=== PATIENT | male | born 1975 | race African-American/Black ===

== ENCOUNTER 2018-05-20 17:33 | Emergency (ER) | payer OTHER ==
[2018-05-20] MEDS ORDERED: LORAZEPAM INJ 2 MG/1 ML VIAL IM ONE (18:03)
--- NOTE | 2018-05-20 18:04 | ER Document Report ---
ED Medical Screen (RME) - General Chief Complaint: Shortness Of Breath Stated Complaint: SHORTNESS OF BREATH Time Seen by Provider: 05/20/18 18:00 Notes: 42 years old male with a history of anxiety depression hypertension presents today with elevated blood pressure and feeling of anxiety. With shaking of limbs. He cannot recall why it happened and what triggered it. He is having tremors. - Related Data Allergies/Adverse Reactions: iodine [Iodine] Allergy (Severe, Verified 05/20/18 17:38) scopolamine [Scopolamine] Allergy (Intermediate, Verified 05/20/18 17:38) Past Medical History - Past Medical History Cardiac Medical History: Reports: Hx Hypertension Past Surgical History: Reports: Hx Adenoidectomy Physical Exam - Vital signs Vitals: Temp Pulse Resp BP Pulse Ox 98.3 F 72 24 H 187/104 H 100 05/20/18 17:52 05/20/18 17:52 05/20/18 17:52 05/20/18 17:52 05/20/18 17:52 Course - Vital Signs Vital signs: Temp Pulse Resp BP Pulse Ox 98.3 F 72 24 H 187/104 H 100 05/20/18 17:52 05/20/18 17:52 05/20/18 17:52 05/20/18 17:52 05/20/18 17:52 Doctor's Discharge - Discharge Referrals: KENIA,NO [Primary Care Provider] - Follow up as needed
[2018-05-20 19:00] LABS: ABSOLUTE BASOPHILS # (AUTO) 0.1 10^3/uL (0.0-0.2); ABSOLUTE EOSINOPHILS # (AUTO) 0.2 10^3/uL (0.0-0.6); ABSOLUTE LYMPHOCYTES (AUTO) 2.4 10^3/uL (0.5-4.7); ABSOLUTE MONOCYTES (AUTO) 0.6 10^3/uL (0.1-1.4); ABSOLUTE NEUT (AUTO) 2.3 10^3/uL (1.7-8.2); EOSINOPHILS % (AUTO) 3.1 % (0-6); HEMATOCRIT 52.2 % (37.9-51.0); HEMOGLOBIN 17.6 g/dL (13.5-17.0); LYMPHOCYTES % (AUTO) 43.5 % (13-45); MEAN CORPUSCULAR HEMOGLOBIN 27.6 pg (27.0-33.4); MEAN CORPUSCULAR HGB CONC 33.7 g/dL (32.0-36.0); MEAN CORPUSCULAR VOLUME 82 fl (80-97); MONOCYTES % (AUTO) 10.2 % (3-13); PLATELET COUNT 175 10^3/uL (150-450); RED BLOOD COUNT 6.35 10^6/uL (4.35-5.55); RED CELL DISTRIBUTION WIDTH 14.6 % (11.5-14.0); SEGMENTED NEUTROPHILS % (AUTO) 42.2 % (42-78); TOTAL CELLS COUNTED % (AUTO) 100 %; WHITE BLOOD COUNT 5.5 10^3/uL (4.0-10.5)
[2018-05-20 19:20] LABS: ALANINE AMINOTRANSFERASE 17 U/L (21-72); ALBUMIN 4.8 g/dL (3.5-5.0); ALKALINE PHOSPHATASE 51 U/L (38-126); ANION GAP 9 (5-19); ASPARTATE AMINO TRANSFERASE 19 U/L (17-59); BILIRUBIN,DIRECT 0.2 mg/dL (0.0-0.4); BILIRUBIN,TOTAL 0.5 mg/dL (0.2-1.3); BLOOD UREA NITROGEN 26 mg/dL (7-20); CARBON DIOXIDE 25 mmol/L (22-30); CHLORIDE 108 mmol/L (98-107); GLUCOSE 102 mg/dL (75-110); POTASSIUM 3.9 mmol/L (3.6-5.0); SODIUM 141.6 mmol/L (137-145); TOTAL PROTEIN 7.3 g/dL (6.3-8.2)
--- NOTE | 2018-05-20 19:28 | ER Document Report ---
ED General - General Chief Complaint: Shortness Of Breath Stated Complaint: SHORTNESS OF BREATH Time Seen by Provider: 05/20/18 18:00 Notes: Patient is a 42-year-old male that comes to the emergency department for chief complaint of "panic attack". He states that he started feeling like his head was throbbing, he felt short of breath, he felt very shaky. He states that this occurred just prior to arrival, he states that usually he can breathe through it, relax, and it resolves but this time it would not. He states that after he got here he started feeling much better, then he was medicated, now he feels fine. He denies any current shortness of breath. He denies ever feeling chest pain, dizziness, focal numbness or weakness. He denies headache. He states that he usually gets a panic attack around once a week. He is medicated for this with the citalopram and venlafaxine, neither are new. He admits he is stressed out on his job. He has a past medical history of hypertension, treated. He admits to smoking, caffeine use, and he has had a lot of trouble sleeping recently. He has been worked up for this including sleep studies. Friends are at bedside. - Related Data Allergies/Adverse Reactions: iodine [Iodine] Allergy (Severe, Verified 05/20/18 17:38) scopolamine [Scopolamine] Allergy (Intermediate, Verified 05/20/18 17:38) Past Medical History - General Information source: Patient - Social History Smoking Status: Current Every Day Smoker Smoking Education Provided: Yes - <3 min Drug Abuse: None Lives with: Family Family History: Reviewed & Not Pertinent Patient has suicidal ideation: No Patient has homicidal ideation: No - Past Medical History Cardiac Medical History: Reports: Hx Hypercholesterolemia, Hx Hypertension Renal/ Medical History: Denies: Hx Peritoneal Dialysis Psychiatric Medical History: Reports: Hx Depression Past Surgical History: Reports: Hx Adenoidectomy, Hx Appendectomy, Hx Orthopedic Surgery - Immunizations Immunizations up to date: Yes Hx Diphtheria, Pertussis, Tetanus Vaccination: Yes Review of Systems - Review of Systems Constitutional: No symptoms reported EENT: No symptoms reported Cardiovascular: No symptoms reported Respiratory: See HPI Gastrointestinal: No symptoms reported Genitourinary: No symptoms reported Male Genitourinary: No symptoms reported Musculoskeletal: No symptoms reported Skin: No symptoms reported Hematologic/Lymphatic: No symptoms reported Neurological/Psychological: See HPI Physical Exam - Vital signs Vitals: Temp Pulse Resp BP Pulse Ox 98.3 F 72 24 H 187/104 H 100 05/20/18 17:52 05/20/18 17:52 05/20/18 17:52 05/20/18 17:52 05/20/18 17:52 - Notes Notes: GENERAL: Alert, interacts well. No acute distress. HEAD: Normocephalic, atraumatic. EYES: Pupils equal, round, and reactive to light. Extraocular movements intact. ENT: Oral mucosa moist, tongue midline. Oropharynx unremarkable. Airway patent. Nares patent, no nasal septal hematoma, TM's intact. NECK: Full range of motion. Supple. Trachea midline. LUNGS: Clear to auscultation bilaterally, no wheezes, rales, or rhonchi. No respiratory distress. HEART: Regular rate and rhythm. No murmur ABDOMEN: Soft, non-tender. Non-distended. Bowel sounds present in all 4 q uadrants. GENITOURINARY: Deferred EXTREMITIES: Moves all 4 extremities spontaneously. No edema, normal radial and dorsalis pedis pulses bilaterally. No cyanosis. BACK: no cervical, thoracic, lumbar midline tenderness. No saddle anesthesia, normal distal neurovascular exam. NEUROLOGICAL: Alert and oriented x3. Normal speech. [cranial nerves II through XII grossly intact]. PSYCH: Normal affect, normal mood. Calm and cooperative. SKIN: Warm, dry, normal turgor. No rashes or lesions noted. Course - Re-evaluation Re-evalutation: On my evaluation patient is calm and well-appearing. He states all his symptoms from earlier have completely resolved. He has already been treated with Ativan. Reviewed workup from triage including CBC, chemistry, this shows elevated hemoglobin but is otherwise unremarkable. Patient is a smoker. Patient is hypertensive. Patient with normal neurologic exam on evaluation. Asymptomatic hypertension. No chest pain or headache. Patient was just given the Ativan therefore he will be reevaluated. On reevaluation patient had been asking for something for nausea/headache which was developing, he is medicated for this with Reglan, after I reevaluated he was asleep, easily aroused. Patient denies a headache to me. Nurse had asked me for medication for headache. Neurologic exam is still normal. He denies any headache. He states he has been having trouble sleeping, he has been stressed out at work, he is having frequent panic attacks, his trazodone is not working which she was just started on. He is requesting to leave, requesting something to take if he has a bad anxiety attack like today that he can take first before coming in. He states usually his panic attacks are manageable without medication. He is also asking for something for sleep. After lengthy discussion with patient denying any concerning reported things like SI or HI, headache, chest pain, patient will be discharged with a small amount of Ativan to take only as needed, Vistaril to try to use for sleep, work release, and he is instructed to do close primary care follow-up for adjustment of his blood pressure medications and psychiatric medications. He is hypertensive at discharge but a symptomatic still. Discussed follow-up and return precautions. Patient states understanding and agreement. - Vital Signs Vital signs: Temp Pulse Resp BP Pulse Ox 97.8 F 60 19 172/103 H 100 05/20/18 20:55 05/20/18 20:55 05/20/18 20:55 05/20/18 20:55 05/20/18 20:55 - Laboratory Result Diagrams: 05/20/18 18:50 05/20/18 18:50 Laboratory results interpreted by me: 05/20/18 05/20/18 18:50 18:50 RBC 6.35 H Hgb 17.6 H Hct 52.2 H RDW 14.6 H Chloride 108 H BUN 26 H ALT 17 L Discharge - Discharge Clinical Impression: Anxiety, Poor sleep, Panic attack Hypertension Qualifiers: Hypertension type: unspecified Qualified Code(s): I10 - Essential (primary) hypertension Condition: Stable Disposition: HOME, SELF-CARE Additional Instructions: Your evaluation is reassuring at this time. Take Ativan as prescribed only if needed for panic attack. Continue your current medications including blood pressure medications. Reduce caffeine, stop smoking. Have your blood pressure rechecked in close follow-up for additional management of this. Most likely a lot of your symptoms will improve if your sleeping improves. Follow-up with primary care for adjustment of medications, you can try the Vistaril prescribed if needed in the meantime. Return if you worsen including severe headache, chest pain, passing out, vomiting, difficulty breathing, or any other concerning or worsening symptoms. Prescriptions: Hydroxyzine Pamoate [Vistaril 25 mg Capsule] 1 - 2 cap PO Q6 PRN #30 capsule PRN Reason: Lorazepam [Ativan 1 mg Tablet] 1 mg PO Q4 PRN #10 tab PRN Reason: Forms: Elevated Blood Pressure, Return to Work Referrals: LOCALMD,NO [NO LOCAL MD] - Follow up as needed
[2018-05-20] MEDS ORDERED: METOCLOPRAMIDE HCL INJ/PF 10 MG/2 ML SDV IV ONE (20:47)
[2018-05-20 20:56] VITALS: BP 172/103
--- NOTE | 2018-05-21 07:52 | EKG REPORT ---
SEVERITY:- BORDERLINE ECG - SINUS RHYTHM BORDERLINE T ABNORMALITIES, INFERIOR LEADS : Confirmed by: Larry Reyes MD 21-May-2018 07:51:21
== END 2018-05-20 22:00 | disposition home or self-care (01) ==
LOC: ER 17:33
DX: F41.8 Other specified anxiety disorders (principal); I10 Essential (primary) hypertension; R06.02 Shortness of breath; F17.200 Nicotine dependence, unspecified, uncomplicated; E78.00 Pure hypercholesterolemia, unspecified
CPT/HCPCS: 93005; 99285; 96372; 96374; 36415; 85025; 80053; 93010; J2765; J2060

== ENCOUNTER 2018-06-22 23:33 | Emergency (ER) | payer OTHER ==
[2018-06-23] MEDS ORDERED: DIPHENHYDRAMINE HCL 50 MG/ML VIAL IV ONE (01:15)
[2018-06-23] MEDS ORDERED: METHYLPREDNISOLONE INJ 125 MG/2 ML SDV IV ONE (01:16)
[2018-06-23] MEDS ORDERED: FAMOTIDINE INJ/PF 20 MG/2 ML SDV IV ONE (01:16)
--- NOTE | 2018-06-23 01:25 | ER Document Report ---
ED General - General Chief Complaint: Headache Stated Complaint: PAIN IN HEAD Time Seen by Provider: 06/23/18 01:05 [facility] - Follow up as needed Information source: [facility] Records, Outside Facility Records Notes: 42-year-old male with hypertension, hyperlipidemia, migraine headaches presents with complaint of left-sided headache that started 4 hours prior to arrival. Headache is located behind the left eye described as a throbbing pain. Patient reports that he has been suffering from this headache intermittently for several months. He had a recent MRI performed less than 1 month ago at [facility] which showed no evidence of stroke but mild nonspecific hyperintense changes within the cerebral white matter which can be seen with trauma inflammation or demyelinating disease. Patient states that he has an upcoming appointment with Dr. Nguyen neurologist on for between the 2018. Patient denies any nausea, photophobia, fever, trauma to the head. He states that they have not provided him with any migraine medications until he is evaluated by neurology. TRAVEL OUTSIDE OF THE [place] IN LAST 30 DAYS: No - HPI Onset: Other Onset/Duration: Intermittent Quality of pain: Throbbing Severity: Moderate Associated symptoms: Headache. denies: Chest pain, Diarrhea, Nausea, Vomiting, Shortness of breath, Weakness Exacerbated by: Denies Relieved by: Denies Similar symptoms previously: Yes Recently seen / treated by doctor: Yes - Related Data Allergies/Adverse Reactions: iodine [Iodine] Allergy (Severe, Verified 06/23/18 01:25) scopolamine [Scopolamine] Allergy (Intermediate, Verified 06/23/18 01:25) Past Medical History - General Information source: Patient, [facility] Records - Social History Smoking Status: Current Every Day Smoker Cigarette use (# per day): Yes - 3 Smoking Education Provided: Yes - Smoking cessation counseling was provided for 4 minutes at the bedside Frequency of alcohol use: Occasional Drug Abuse: None Lives with: Family Family History: Reviewed & Not Pertinent - Past Medical History Cardiac Medical History: Reports: Hx Hypercholesterolemia, Hx Hypertension Renal/ Medical History: Denies: Hx Peritoneal Dialysis Psychiatric Medical History: Reports: Hx Depression Past Surgical History: Reports: Hx Adenoidectomy, Hx Appendectomy, Hx Orthopedic Surgery - Immunizations Immunizations up to date: Yes Hx Diphtheria, Pertussis, Tetanus Vaccination: Yes Review of Systems - Review of Systems Notes: REVIEW OF SYSTEMS: CONSTITUTIONAL : Denies fever, chills, or sweats. Denies recent illness. Denies weight loss, recent hospitalizations. EENT: Denies sore throat, oral lesions, difficulty swallowing. CARDIOVASCULAR: Denies chest pain. Denies palpitations. Denies lower extremity edema. RESPIRATORY: Denies cough. Denies shortness of breath, wheezing. GASTROINTESTINAL: Denies abdominal pain or distention. Denies nausea, vomiting, or diarrhea. Denies blood in vomitus, stools, or per rectum. Denies black, tarry stools. Denies constipation. GENITOURINARY: Denies difficulty urinating, painful urination, frequency, blood in urine, testicular pain or penile discharge. MUSCULOSKELETAL: Denies back or neck pain or stiffness. Denies joint pain or swelling. SKIN: Denies rash, lesions or sores. HEMATOLOGIC : Denies easy bruising or bleeding. LYMPHATIC: Denies swollen glands. NEUROLOGICAL: Denies confusion or altered mental status. Denies loss of consciousness. Denies dizziness or lightheadedness. Denies weakness or paralysis. Denies problems difficulty with ambulation, slurred speech. Denies sensory loss, numbness, or tingling. Denies seizures. PSYCHIATRIC: Denies anxiety or stress. Denies depression, suicidal ideation, or Physical Exam - Vital signs Vitals: Temp Pulse BP Pulse Ox 98.7 F 65 167/108 H 95 06/22/18 23:42 06/22/18 23:42 06/22/18 23:42 06/22/18 23:42 - Notes Notes: PHYSICAL EXAMINATION: GENERAL: Well-appearing, well-nourished and in no acute distress. HEAD: Atraumatic, normocephalic. EYES: Pupils equal round and reactive to light, extraocular movements intact, sclera anicteric, conjunctiva are normal. No temporal artery tenderness ENT: Nares patent, oropharynx clear without exudates. Moist mucous membranes. NECK: Normal range of motion, supple without lymphadenopathy LUNGS: Breath sounds clear to auscultation bilaterally and equal. No wheezes rales or rhonchi. HEART: Regular rate and rhythm without murmurs ABDOMEN: Soft, nontender, nondistended abdomen. No guarding, no rebound. No masses appreciated. Musculoskeletal: Normal range of motion, no pitting or edema. No cyanosis. Neuro: Mental status; alert and oriented x3. Cranial nerves II through XII intact. Sensation intact to sharp/dull differentiation in all extremities. Motor; normal tone. No abnormal movements appreciated. No pronator drift. Strength tested and 5/5 in bilateral wrist flexion/extension, elbow flexion/extension, shoulder abduction, straight leg raise, knee flexion/extension, ankle dorsiflexion/plantar flexion. Patient ambulates with a steady gait. Coordination; no ataxia. Finger to nose and heel to ho testing intact bilaterally. Reflexes; brachial radialis, biceps, and patellar reflexes within normal limits and symmetric bilaterally. Babinski with downgoing toes b ilaterally. PSYCH: Normal mood, normal affect. SKIN: Warm, Dry, normal turgor, no rashes or lesions noted. Course - Re-evaluation Re-evalutation: Head CT 06/23/18 01:05 IMPRESSION: No acute intracranial findings. Head CTA 06/23/18 01:05 IMPRESSION: Unremarkable CT angiogram. No evidence of aneurysm, stenosis or vessel occlusion. Neck CTA 06/23/18 01:05 IMPRESSION: Unremarkable CT angiogram. No evidence of aneurysm, stenosis or vessel occlusion. Laboratory 06/23/18 06/23/18 06/23/18 01:10 01:10 01:10 WBC 5.8 RBC 5.86 H Hgb 16.7 Hct 48.6 MCV 83 MCH 28.5 MCHC 34.3 RDW 15.7 H Plt Count 200 Seg Neutrophils % 47.5 Lymphocytes % 38.8 Monocytes % 9.7 Eosinophils % 3.1 Basophils % 0.9 Absolute Neutrophils 2.8 Absolute Lymphocytes 2.3 Absolute Monocytes 0.6 Absolute Eosinophils 0.2 Absolute Basophils 0.1 PT 12.7 INR 0.91 APTT 27.4 Sodium 140.0 Potassium 4.6 Chloride 107 Carbon Dioxide 21 L Anion Gap 12 BUN 24 H Creatinine 1.04 Est GFR ( Amer) > 60 Est GFR (Non-Af Amer) > 60 Glucose 98 Calcium 9.5 Total Bilirubin 0.4 Direct Bilirubin 0.2 Neonat Total Bilirubin Not Reportable Neonat Direct Bilirubin Not Reportable Neonat Indirect Bili Not Reportable AST 23 ALT 32 Alkaline Phosphatase 54 CK-MB (CK-2) Troponin I Total Protein 7.0 Albumin 4.9 Urine Color Urine Appearance Urine pH Ur Specific Amado Urine Protein Urine Glucose (UA) Urine Ketones Urine Blood Urine Nitrite Urine Bilirubin Urine Urobilinogen Ur Leukocyte Esterase Urine RBC (Auto) Urine Ascorbic Acid Urine Opiates Screen Urine Methadone Screen Ur Barbiturates Screen Ur Phencyclidine Scrn Ur Amphetamines Screen U Benzodiazepines Scrn Urine Cocaine Screen U Marijuana (THC) Screen 06/23/18 06/23/18 06/23/18 01:10 01:10 01:10 WBC RBC Hgb Hct MCV MCH MCHC RDW Plt Count Seg Neutrophils % Lymphocytes % Monocytes % Eosinophils % Basophils % Absolute Neutrophils Absolute Lymphocytes Absolute Monocytes Absolute Eosinophils Absolute Basophils PT INR APTT Sodium Potassium Chloride Carbon Dioxide Anion Gap BUN Creatinine Est GFR ( Amer) Est GFR (Non-Af Amer) Glucose Calcium Total Bilirubin Direct Bilirubin Neonat Total Bilirubin Neonat Direct Bilirubin Neonat Indirect Bili AST ALT Alkaline Phosphatase CK-MB (CK-2) 0.58 Troponin I 0.014 Total Protein Albumin Urine Color STRAW Urine Appearance CLEAR Urine pH 6.0 Ur Specific Amado 1.012 Urine Protein NEGATIVE Urine Glucose (UA) NEGATIVE Urine Ketones NEGATIVE Urine Blood SMALL H Urine Nitrite NEGATIVE Urine Bilirubin NEGATIVE Urine Urobilinogen NEGATIVE Ur Leukocyte Esterase NEGATIVE Urine RBC (Auto) 3 Urine Ascorbic Acid NEGATIVE Urine Opiates Screen NEGATIVE Urine Methadone Screen NEGATIVE Ur Barbiturates Screen NEGATIVE Ur Phencyclidine Scrn NEGATIVE Ur Amphetamines Screen NEGATIVE U Benzodiazepines Scrn NEGATIVE Urine Cocaine Screen NEGATIVE U Marijuana (THC) Screen NEGATIVE Temp Pulse Resp BP Pulse Ox 98.7 F 65 20 167/106 H 100 06/22/18 23:42 06/22/18 23:42 06/23/18 02:21 06/23/18 02:21 06/23/18 02:21 06/23/18 01:24 42-year-old male presents with left-sided headache that started 3 hours prior to arrival but the patient has [facility] Recent MRI was obtained and showed no evidence of acute stroke but did show some abnormalities which could indicate inflammation or de myelinating disease. Patient has an upcoming appointment with neurology on July 07. Vital signs were reviewed and patient is markedly hypertensive. He states that he has been compliant with his blood pressure medications. NIH was performed and 0. Patient has no temporal artery tenderness. Patient has no focal deficits and ambulates without difficulty. He does not appear toxic or dehydrated. He is in no acute distress. Previous medical records and nursing notes reviewed. Patient reports contrast allergy so he did receive IV Benadryl, Solu-Medrol and Pepcid prior to CTA. 06/23/18 02:38 Visual acuity was performed and OS 20/50, OU 20/30, OD 20/40 without glasses that patient usually wears. 06/23/18 03:05 CT of the head was obtained and showed no acute process. CTA of the head and neck also within normal limits and without aneurysm, stenosis. Patient does report improvement of his headache. Blood pressure has improved. 06/23/18 03:09 This has been an ongoing problem for this patient for several months. He has had a recent MRI without evidence of stroke. He has neurology follow-up scheduled. No evidence of endorgan damage. Patient was evaluated and treated as appropriate for the patient's presenting symptoms and complaint, with consideration of any critical or life threatening conditions that may be associated with their obtained history and exam as noted above. All results were discussed with patient. Patient provided the opportunity to ask questions, and express concerns. Patient was educated on treatments based on their presumed diagnosis as noted above. At this time we will discharge the patient with return precautions and follow-up recommendations. Verbal discharge instructions given a the bedside. Medication warnings reviewed. Patient is in agreement with this plan and has verbalized understanding of return precautions. After careful consideration I feel that that patient can be safely discharged from the emergency department, they were advised to followup with a primary care physician in 2-3 days. Dictation on this chart was performed using voice recognition software and may result in unintended grammatical, spelling, syntax or errors. 06/23/18 03:11 06/23/18 03:13 06/23/18 06:10 - Vital Signs Vital signs: Temp Pulse Resp BP Pulse Ox 98.5 F 65 18 151/95 H 100 06/23/18 03:55 06/22/18 23:42 06/23/18 03:42 06/23/18 03:42 06/23/18 03:42 - Laboratory Result Diagrams: 06/23/18 01:10 06/23/18 01:10 Laboratory results interpreted by me: 06/23/18 06/23/18 06/23/18 01:10 01:10 01:10 RBC 5.86 H RDW 15.7 H Carbon Dioxide 21 L BUN 24 H Urine Blood SMALL H - Diagnostic Test Radiology reviewed: Image reviewed, Reports reviewed - EKG Interpretation by Me EKG shows normal: Sinus rhythm Rate: Normal Rhythm: NSR When compared to previous EKG there are: No significant change Discharge - Discharge Clinical Impression: Elevated blood pressure reading Headache Qualifiers: Headache type: unspecified Headache chronicity pattern: chronic headache In tractability: not intractable Qualified Code(s): R51 - Headache Condition: Good Disposition: HOME, SELF-CARE Instructions: Use of Diphenhydramine, Headache ([facility]), Reglan ([facility]), Toradol I njection ([facility]) Additional Instructions: Follow up with your [id number] hours for further care or return to the ED IMMEDIATELY if symptoms worsen or you have any concerns. If you cannot afford to follow up with your primary care physician a list of low cost clinics have been provided at the end of your discharge papers as well. Most prescribed medications have multiple side effects. The safest thing to do is when filling your prescription speak to your pharmacist regarding possible interactions with your normal home medications and over the counter medications such as Ibuprofen, Tylenol, Benadryl. If you experience any symptoms that cause you discomfort or concern you should discontinue the medication immediately and return to the emergency room or call your primary care physician. Prescriptions: Metoclopramide HCl [Reglan 10 mg Tablet] 1 tab PO Q8H PRN #10 tablet PRN Reason: For Headache Forms: Elevated Blood Pressure, Smoking Cessation Education [facility]errals: [facility] [[facility]] - Follow up as needed ED NIH Stroke Scale - NIH Stroke Scale *: 1. NIH scale should be completed with appropriate accompanying assessment tools. *: 2. The NIH should reflect what the patient is capable of doing and should not be coached by the clinician. 1a. Level of Consciousness: 0=Alert;keenly responsive -: 1=Drowsy -: 2=Obtunded -: 3=Coma/unresponsive or reflex to noxious stimuli. 1a. Responses: 0 1b. Orientation Questions: a. What month is it? -: b. How old are you? -: 0=Answers both questions correctly. -: 1=Answers one question correctly or patient is intubated or has orotracheal trauma. -: 2=Answers neither question correctly. 1b. Responses: 0 1c. Response to commands: a. Open and close eyes? -: b. Carbide Grinder and release hand? -: Credit is given despite weakness. Demonstration of task is permitted. Substitute command if hands cannot be used. -: 0=Performs both tasks correctly -: 1=Performs one task correctly -: 2=Performs neither task correctly 1c. Responses: 0 2. Gaze: Establish eye contact and instruct patient to "Follow my finger" -: 0=Normal -: 1=Partial gaze palsy. Gaze is abnormal in one or both eyes, but where forced deviation or total gaze paresis is not present. -: 2=Forced deviation or total gaze paresis. 2. Responses: 0 3. Visual Cortes: Sees fingers in all four quadrants. -: 0=No visual loss. -: 1=Partial hemianopsia. -: 2=Complete hemianopsia. -: 3=Bilateral hemianopsia (including Cortical blindness) 3. Responses: 0 4. Facial Movement: Instruct patient to: -: a. Show me your teeth -: b. Raise your eyebrows -: c. Close your eyes -: d. Smile -: 0=Normal symmetrical movement -: 1=Minor paralysis (flattened nasolabial fold, asymmetry on smiling). -: 2=Partial paralysis (total or near total paralysis of lower face). -: 3=Complete paralysis of upper and lower face 4. Responses: 0 5. Motor functions (left arm): Alternate sides and extend each arm with palms down (90 degrees if sitting or 45 degrees for supine). -: 0=No drift;limb holds for full 10 seconds. -: 1=Drift; limb holds but drifts down before full 10 seconds, but does not hit bed. -: 2=Some effort against gravity; limb cannot get to or maintain position. -: 3=No effort against gravity; limb falls. -: 4=No movement. -: UN=Amputation, joint fusion, explain in comments. 5. Responses (left arm): 0 5. Motor Functions (right arm): Alternate sides and extend each arm with palms down (90 degrees if sitting or 45 degrees for supine). -: 0=No drift;limb holds for full 10 seconds. -: 1=Drift; limb holds but drifts down before full 10 seconds, but does not hit bed. -: 2=Some effort against gravity; limb cannot get to or maintain position. -: 3=No effort against gravity; limb falls. -: 4=No movement. -: UN=Amputation, joint fusion, explain in comments. 5. Responses (right arm): 0 6. Motor Functions (left leg): With patient lying supine, alternate sides and extend each leg (30 degrees always while supine). -: 0=No drift, leg holds position for full 5 seconds -: 1=Drift; leg falls before full 5 seconds but does not hit bed. -: 2=Some effort against gravity, leg falls to bed but some effort against gra vity. -: 3=No effort against gravity, leg falls to bed immediately. -: 4=No movement. -: UN=Amputation, joint fusion; explain in comments. 6. Responses (left leg): 0 6. Motor Functions (right leg): With patient lying supine, alternate sides and extend each leg (30 degrees always while supine). -: 0=No drift, leg holds position for full 5 seconds -: 1=Drift; leg falls before full 5 seconds but does not hit bed. -: 2=Some effort against gravity, leg falls to bed but some effort against gravity. -: 3=No effort against gravity, leg falls to bed immediately. -: 4=No movement. -: UN=Amputation, joint fusion; explain in comments. 6. Responses (right leg): 0 7. Limb Ataxia: With eyes open instruct patient to: -: a. "Touch your finger to your nose". -: b. "Touch your heel to your ho" -: 0=Absent -: 1=Present in one limb. -: 2=Present in two limbs. -: UN=Amputation or joint fusion; explain in comments. 7. Responses: 0 8. Sensory: Test sensation using pinprick or noxious stimuli. Test as many body parts as possible. -: 0=Normal;no sensory loss -: 1=Mile to moderate sensory loss (patient feels pin prick but is less sharp on affected side). -: 2=Severe or total sensory loss. 8. Responses: 0 9. Best Language: Instruct patient to: -: a. "Describe what you see in this picture." -: b. "Name the items in this picture." -: c. "Read these sentences." -: 0=No aphasia, normal -: 1=Mild to moderate aphasia. -: 2=Severe aphasia -: 3=Mute, global aphasia, no usable speech or auditory comprehension. 9. Responses: 0 10. Articulation, Dysarthia: Instruct patient to: -: "Read these words" or "Repeat these words" -: 0=Normal -: 1=Mild to moderate; patient may slur some words but can be understood without difficulty. -: 2=Severe; patients speech so slurred as to be unintelligible in the absence of dysphasia. -: UN=Intubated or other physical barrier, explain in comments. 10. Responses: 0 11. Extinction or inattention: 0=No abnormality -: 1= Visual, tactile, auditory, spatial, or personal inattention or extinction to bilateral simulation in one or the sensory modalities. -: 2=Profound tai-inattention or tai-inattention to more than one modality; does not recognize own hand. 11. Responses: 0 Total Score: 0
[2018-06-23 01:26] LABS: ABSOLUTE BASOPHILS # (AUTO) 0.1 10^3/uL (0.0-0.2); ABSOLUTE EOSINOPHILS # (AUTO) 0.2 10^3/uL (0.0-0.6); ABSOLUTE LYMPHOCYTES (AUTO) 2.3 10^3/uL (0.5-4.7); ABSOLUTE MONOCYTES (AUTO) 0.6 10^3/uL (0.1-1.4); ABSOLUTE NEUT (AUTO) 2.8 10^3/uL (1.7-8.2); BASOPHILS % (AUTO) 0.9 % (0-2); EOSINOPHILS % (AUTO) 3.1 % (0-6); HEMATOCRIT 48.6 % (37.9-51.0); HEMOGLOBIN 16.7 g/dL (13.5-17.0); LYMPHOCYTES % (AUTO) 38.8 % (13-45); MEAN CORPUSCULAR HEMOGLOBIN 28.5 pg (27.0-33.4); MEAN CORPUSCULAR HGB CONC 34.3 g/dL (32.0-36.0); MEAN CORPUSCULAR VOLUME 83 fl (80-97); MONOCYTES % (AUTO) 9.7 % (3-13); PLATELET COUNT 200 10^3/uL (150-450); RED BLOOD COUNT 5.86 10^6/uL (4.35-5.55); RED CELL DISTRIBUTION WIDTH 15.7 % (11.5-14.0); SEGMENTED NEUTROPHILS % (AUTO) 47.5 % (42-78); TOTAL CELLS COUNTED % (AUTO) 100 %; WHITE BLOOD COUNT 5.8 10^3/uL (4.0-10.5)
[2018-06-23 01:32] LABS: INTERNATIONAL RATION (INR) 0.91; PARTIAL THROMBOPLASTIN TIME 27.4 SEC (23.5-35.8); PROTHROMBIN TIME 12.7 SEC (11.4-15.4)
[2018-06-23 01:37] LABS: APPEARANCE,URINE CLEAR; BILIRUBIN,URINE NEGATIVE (NEGATIVE); COLOR,URINE STRAW; GLUCOSE, URINE NEGATIVE (NEGATIVE); KETONES,URINE NEGATIVE (NEGATIVE); LEUKOCYTE ESTERASE,URINE NEGATIVE (NEGATIVE); NITRITE,URINE NEGATIVE (NEGATIVE); PROTEIN,URINE NEGATIVE (NEGATIVE); URINE SPECIFIC GRAVITY 1.012; UROBILINOGEN,URINE NEGATIVE mg/dL (<2.0)
--- NOTE | 2018-06-23 01:43 | RADIOLOGY REPORT (SQ) ---
CLINICAL HISTORY: headache COMPARISON: None. TECHNIQUE: CT HEAD WITHOUT IV CONTRAST on 06/23/2018 1:05 AM ASSOCIATE PROFESSOR OF PHYSICS This exam was performed according to our departmental dose-optimization program, which includes automated exposure control, adjustment of the mA and/or kV according to patient size and/or use of iterative reconstruction technique. FINDINGS: There is no acute hemorrhage, mass effect or midline shift. Laughlin-white differentiation is preserved. There is no hydrocephalus. There is no significant volume loss for age. The calvarium is intact. Orbits and globes are unremarkable. The paranasal sinuses are clear. Mastoid air cells are clear. IMPRESSION: No acute intracranial findings.
[2018-06-23 01:44] LABS: ALANINE AMINOTRANSFERASE 32 U/L (21-72); ALBUMIN 4.9 g/dL (3.5-5.0); ALKALINE PHOSPHATASE 54 U/L (38-126); ANION GAP 12 (5-19); ASPARTATE AMINO TRANSFERASE 23 U/L (17-59); BILIRUBIN,DIRECT 0.2 mg/dL (0.0-0.4); BILIRUBIN,TOTAL 0.4 mg/dL (0.2-1.3); BLOOD UREA NITROGEN 24 mg/dL (7-20); CALCIUM 9.5 mg/dL (8.4-10.2); CARBON DIOXIDE 21 mmol/L (22-30); CHLORIDE 107 mmol/L (98-107); GLUCOSE 98 mg/dL (75-110); POTASSIUM 4.6 mmol/L (3.6-5.0)
[2018-06-23 02:00] LABS: URINE AMPHETAMINES SCREEN NEGATIVE; URINE BARBITURATES SCREEN NEGATIVE; URINE BENZODIAZEPINES SCREEN NEGATIVE; URINE COCAINE SCREEN NEGATIVE; URINE MARIJUANA (THC) SCREEN NEGATIVE; URINE METHADONE SCREEN NEGATIVE; URINE PHENCYCLIDINE SCREEN NEGATIVE
[2018-06-23 02:10] LABS: CREATINE KINASE MB 0.58 ng/mL (<4.55); TROPONIN I 0.014 ng/mL
--- NOTE | 2018-06-23 02:51 | RADIOLOGY REPORT (SQ) ---
CLINICAL HISTORY: headache COMPARISON: None. TECHNIQUE: CT NECK ANGIOGRAPHY WITHOUT THEN WITH IV CONTRAST, CT HEAD ANGIOGRAPHY WITHOUT THEN WITH IV CONTRAST on 06/23/2018 1:05 AM OPERATIONS SUPPORT COORDINATOR This exam was performed according to our departmental dose-optimization program, which includes automated exposure control, adjustment of the mA and/or kV according to patient size and/or use of iterative reconstruction technique. MIP reconstructions were generated. Stenoses are calculated by NASCET criteria. FINDINGS: Origins of the common carotid arteries are unremarkable. Bilateral internal carotid arteries are unremarkable as well. Bilateral vertebral arteries are diffusely patent. The vertebral basilar system is unremarkable. The posterior cerebral arteries are patent. Bilateral anterior and middle cerebral arteries are patent. IMPRESSION: Unremarkable CT angiogram. No evidence of aneurysm, stenosis or vessel occlusion.
--- NOTE | 2018-06-23 02:51 | RADIOLOGY REPORT (SQ) ---
CLINICAL HISTORY: headache COMPARISON: None. TECHNIQUE: CT NECK ANGIOGRAPHY WITHOUT THEN WITH IV CONTRAST, CT HEAD ANGIOGRAPHY WITHOUT THEN WITH IV CONTRAST on 06/23/2018 1:05 AM EXHIBIT DISPLAY REPRESENTATIVE This exam was performed according to our departmental dose-optimization program, which includes automated exposure control, adjustment of the mA and/or kV according to patient size and/or use of iterative reconstruction technique. MIP reconstructions were generated. Stenoses are calculated by NASCET criteria. FINDINGS: Origins of the common carotid arteries are unremarkable. Bilateral internal carotid arteries are unremarkable as well. Bilateral vertebral arteries are diffusely patent. The vertebral basilar system is unremarkable. The posterior cerebral arteries are patent. Bilateral anterior and middle cerebral arteries are patent. IMPRESSION: Unremarkable CT angiogram. No evidence of aneurysm, stenosis or vessel occlusion.
[2018-06-23] MEDS ORDERED: KETOROLAC TROMETHAMINE INJ/PF 30 MG/1 ML SDV IV ONE (03:05)
[2018-06-23] MEDS ORDERED: LORAZEPAM INJ 2 MG/1 ML VIAL IV ONE (03:07)
[2018-06-23 03:58] VITALS: BP 151/95
--- NOTE | 2018-06-23 07:31 | EKG REPORT ---
SEVERITY:- NORMAL ECG - SINUS RHYTHM : Confirmed by: Candi Bryant MD 23-Jun-2018 07:31:06
== END 2018-06-23 03:59 | disposition home or self-care (01) ==
LOC: ER 23:33
DX: R51 Headache (principal); I10 Essential (primary) hypertension; Z79.899 Other long term (current) drug therapy; F17.210 Nicotine dependence, cigarettes, uncomplicated; Z71.6 Tobacco abuse counseling; Z88.8 Allergy status to other drugs, medicaments and biological substances; Z91.041 Radiographic dye allergy status
CPT/HCPCS: 93005; 99406; 99284; 96374; 96375; 36415; 82553; 85025; 85610; 85730; 80053; 81001; 84484; 80307; 70450; 70496; 70498; 93010; J1200; J2930; J1885; J2060; S0028

== ENCOUNTER 2018-10-12 08:44 | Emergency (ER) | payer OTHER ==
--- NOTE | 2018-10-12 09:09 | ER Document Report ---
ED Medical Screen (RME) - General Chief Complaint: High Blood Pressure Stated Complaint: ELEVATED BLOOD PRESSURE Time Seen by Provider: 10/12/18 08:59 Primary Care Provider: ADOLFO,PHILIPPE [Primary Care Provider] - Follow up as needed Mode of Arrival: Ambulatory Information source: Patient Notes: Patient presents emergency department for complaints of hypertension and mi graines. Patient has had cluster migraines and hypertension for years. He is on multiple medications. He reports typical headache today top left side. He reports the headache 2/5. Reports it is not that bad today. When it is really bad he has oxygen at home and gives himself injections. He is on multiple hypertensive medications. [facility] No new symptoms no shortness of breath no chest pain no fever vomiting or diarrhea. I have greeted and performed a rapid initial assessment of this patient. A comprehensive ED assessment and evaluation of the patient, analysis of test results and completion of the medical decision making process will be conducted by additional ED providers. Dictation of this chart was performed using voice recognition software; therefore, there may be some unintended grammatical errors. TRAVEL OUTSIDE OF THE [place] IN LAST 30 DAYS: No - Related Data Allergies/Adverse Reactions: iodine [Iodine] Allergy (Severe, Verified 10/12/18 08:52) scopolamine [Scopolamine] Allergy (Intermediate, Verified 10/12/18 08:52) Past Medical History - Past Medical History Cardiac Medical History: Reports: Hx Hypercholesterolemia, Hx Hypertension Neurological Medical History: Reports: Hx Migraine Renal/ Medical History: Denies: Hx Peritoneal Dialysis Psychiatric Medical History: Reports: Hx Depression Past Surgical History: Reports: Hx Adenoidectomy, Hx Appendectomy, Hx Orthopedic Surgery - Immunizations Immunizations up to date: Yes Hx Diphtheria, Pertussis, Tetanus Vaccination: Yes Physical Exam - Vital signs Vitals: Temp Pulse Resp BP Pulse Ox 98.6 F 86 16 187/117 H 98 10/12/18 08:55 10/12/18 08:55 10/12/18 08:55 10/12/18 08:55 10/12/18 08:55 Course - Vital Signs Vital signs: Temp Pulse Resp BP Pulse Ox 98.6 F 86 16 187/117 H 98 10/12/18 08:55 10/12/18 08:55 10/12/18 08:55 10/12/18 08:55 10/12/18 08:55 Doctor's Discharge - Discharge [facility]: [facility] - Follow up as needed
[2018-10-12 09:56] LABS: APPEARANCE,URINE CLEAR; BILIRUBIN,URINE NEGATIVE (NEGATIVE); COLOR,URINE YELLOW; GLUCOSE, URINE NEGATIVE (NEGATIVE); KETONES,URINE NEGATIVE (NEGATIVE); LEUKOCYTE ESTERASE,URINE NEGATIVE (NEGATIVE); NITRITE,URINE NEGATIVE (NEGATIVE); PROTEIN,URINE 30 mg/dL (NEGATIVE); URINE SPECIFIC GRAVITY 1.013; UROBILINOGEN,URINE NEGATIVE mg/dL (<2.0)
[2018-10-12 10:57] LABS: ABSOLUTE EOSINOPHILS # (AUTO) 0.2 10^3/uL (0.0-0.6); ABSOLUTE LYMPHOCYTES (AUTO) 1.4 10^3/uL (0.5-4.7); ABSOLUTE MONOCYTES (AUTO) 0.5 10^3/uL (0.1-1.4); BASOPHILS % (AUTO) 1.1 % (0-2); EOSINOPHILS % (AUTO) 4.1 % (0-6); HEMATOCRIT 50.4 % (37.9-51.0); HEMOGLOBIN 16.8 g/dL (13.5-17.0); LYMPHOCYTES % (AUTO) 34.5 % (13-45); MEAN CORPUSCULAR HEMOGLOBIN 27.8 pg (27.0-33.4); MEAN CORPUSCULAR HGB CONC 33.4 g/dL (32.0-36.0); MEAN CORPUSCULAR VOLUME 83 fl (80-97); MONOCYTES % (AUTO) 12.2 % (3-13); PLATELET COUNT 175 10^3/uL (150-450); RED BLOOD COUNT 6.05 10^6/uL (4.35-5.55); RED CELL DISTRIBUTION WIDTH 14.3 % (11.5-14.0); SEGMENTED NEUTROPHILS % (AUTO) 48.1 % (42-78); TOTAL CELLS COUNTED % (AUTO) 100 %; WHITE BLOOD COUNT 4.2 10^3/uL (4.0-10.5)
[2018-10-12 11:16] LABS: ALANINE AMINOTRANSFERASE 27 U/L (21-72); ALBUMIN 4.4 g/dL (3.5-5.0); ALKALINE PHOSPHATASE 44 U/L (38-126); ANION GAP 10 (5-19); ASPARTATE AMINO TRANSFERASE 21 U/L (17-59); BILIRUBIN,DIRECT 0.3 mg/dL (0.0-0.4); BILIRUBIN,TOTAL 0.5 mg/dL (0.2-1.3); BLOOD UREA NITROGEN 16 mg/dL (7-20); CALCIUM 9.8 mg/dL (8.4-10.2); CARBON DIOXIDE 23 mmol/L (22-30); CHLORIDE 106 mmol/L (98-107); GLUCOSE 93 mg/dL (75-110); POTASSIUM 4.4 mmol/L (3.6-5.0); TOTAL PROTEIN 6.9 g/dL (6.3-8.2)
--- NOTE | 2018-10-12 11:18 | RADIOLOGY REPORT (SQ) ---
EXAM DESCRIPTION: CHEST 2 VIEWS COMPLETED DATE/TIME: 10/12/2018 11:00 am REASON FOR STUDY: sob COMPARISON: None. EXAM PARAMETERS: NUMBER OF VIEWS: two views TECHNIQUE: Digital Frontal and Lateral radiographic views of the chest acquired. RADIATION DOSE: NA LIMITATIONS: none FINDINGS: LUNGS AND PLEURA: No opacities, masses or pneumothorax. No pleural effusion. MEDIASTINUM AND HILAR STRUCTURES: No masses or contour abnormalities. HEART AND VASCULAR STRUCTURES: Heart normal size. No evidence for failure. BONES: No acute findings. HARDWARE: None in the chest. OTHER: No other significant finding. IMPRESSION: NO ACUTE RADIOGRAPHIC FINDING IN THE CHEST. TECHNICAL DOCUMENTATION: JOB ID: [id number] [employer]- All Rights Reserved Reading location - IP/workstation name: [email or web address]
[2018-10-12] MEDS ORDERED: SUMATRIPTAN SUCCINATE 100 MG TABLET PO ONE ×2 (11:26→12:45)
--- NOTE | 2018-10-12 11:27 | ER Document Report ---
ED General - General Chief Complaint: High Blood Pressure Stated Complaint: ELEVATED BLOOD PRESSURE Time Seen by Provider: 10/12/18 08:59 [facility] - Follow up as needed Mode of Arrival: Ambulatory Information source: Patient, [facility] Records Notes: 43-year-old male with hypertension, cluster headaches presents with concern for elevated blood pressure. Patient states that he was being evaluated for an increase in his disability when his documented blood pressure was high and they recommended he be seen in the emergency department. Patient does take multiple medications for his blood pressure and reports persistent hypertension that is poorly controlled. Patient has been compliant with his medications that include atorvastatin, atenolol, clonidine. He denies any recent changes in his medication, visual changes, chest pain, shortness of breath, difficulty with urination, leg swelling. Patient is currently complaining of a mild frontal headache which is similar to his cluster headaches. TRAVEL OUTSIDE OF THE [place] IN LAST 30 DAYS: No - HPI Onset: Other Quality of pain: No pain Severity: None Pain Level: Denies Associated symptoms: Headache. denies: Chest pain, Productive cough, Leg swelling, Nausea, Vomiting, Shortness of breath Exacerbated by: Denies Relieved by: Denies Similar symptoms previously: Yes Recently seen / treated by doctor: Yes - Related Data Allergies/Adverse Reactions: iodine [Iodine] Allergy (Severe, Verified 10/12/18 08:52) scopolamine [Scopolamine] Allergy (Intermediate, Verified 10/12/18 08:52) Past Medical History - General Information source: Patient - Social History Smoking Status: Current Some Day Smoker Cigarette use (# per day): Yes - 1-2 Frequency of alcohol use: Occasional Drug Abuse: None Lives with: Family Family History: Reviewed & Not Pertinent Patient has suicidal ideation: No Patient has homicidal ideation: No - Past Medical History Cardiac Medical History: Reports: Hx Hypercholesterolemia, Hx Hypertension Neurological Medical History: Reports: Hx Migraine Renal/ Medical History: Denies: Hx Peritoneal Dialysis Psychiatric Medical History: Reports: Hx Depression Past Surgical History: Reports: Hx Adenoidectomy, Hx Appendectomy, Hx Orthopedic Surgery - Immunizations Immunizations up to date: Yes Hx Diphtheria, Pertussis, Tetanus Vaccination: Yes Review of Systems - Review of Systems Notes: REVIEW OF SYSTEMS: CONSTITUTIONAL : Denies fever, chills, or sweats. Denies recent illness. Denies weight loss, recent hospitalizations. EENT: Denies visual changes, eye pain. Denies sore throat, oral lesions, difficulty swallowing. CARDIOVASCULAR: Denies chest pain. Denies palpitations. Denies lower extremity edema. RESPIRATORY: Denies cough. Denies shortness of breath, wheezing. GASTROINTESTINAL: Denies abdominal pain or distention. Denies nausea, vomiting, or diarrhea. Denies blood in vomitus, stools, or per rectum. Denies black, tarry stools. Denies constipation. GENITOURINARY: Denies difficulty urinating, painful urination, frequency, blood in urine, testicular pain or penile discharge. MUSCULOSKELETAL: Denies back or neck pain or stiffness. Denies joint pain or swelling. SKIN: Denies rash, lesions or sores. HEMATOLOGIC : Denies easy bruising or bleeding. LYMPHATIC: Denies swollen glands. NEUROLOGICAL: Denies confusion or altered mental status. Denies loss of consciousness. Denies dizziness or lightheadedness. +headache. Denies weaknes s or paralysis. Denies problems difficulty with ambulation, slurred speech. Denies sensory loss, numbness, or tingling. Denies seizures. PSYCHIATRIC: Denies anxiety or stress. Denies depression, suicidal ideation, or Physical Exam - Vital signs Vitals: Temp Pulse Resp BP Pulse Ox 98.6 F 86 16 187/117 H 98 10/12/18 08:55 10/12/18 08:55 10/12/18 08:55 10/12/18 08:55 10/12/18 08:55 - Notes Notes: PHYSICAL EXAMINATION: GENERAL: Well-appearing, well-nourished and in no acute distress. HEAD: Atraumatic, normocephalic. EYES: Pupils equal round and reactive to light, extraocular movements intact, sclera anicteric, conjunctiva are normal. ENT: Nares patent, oropharynx clear without exudates. Moist mucous membranes. NECK: Normal range of motion, supple without lymphadenopathy LUNGS: Breath sounds clear to auscultation bilaterally and equal. No wheezes rales or rhonchi. HEART: Regular rate and rhythm without murmurs ABDOMEN: Soft, nontender, nondistended abdomen. No guarding, no rebound. No masses appreciated. Musculoskeletal: Normal range of motion, no pitting or edema. No cyanosis. NEUROLOGICAL: Cranial nerves grossly intact. Normal speech, normal gait. Normal sensory, motor exams PSYCH: Normal mood, normal affect. SKIN: Warm, Dry, normal turgor, no rashes or lesions noted. Course - Re-evaluation Re-evalutation: 10/12/18 16:41 Laboratory 10/12/18 10/12/18 10/12/18 09:18 10:40 10:40 WBC 4.2 RBC 6.05 H Hgb 16.8 Hct 50.4 MCV 83 MCH 27.8 MCHC 33.4 RDW 14.3 H Plt Count 175 Seg Neutrophils % 48.1 Lymphocytes % 34.5 Monocytes % 12.2 Eosinophils % 4.1 Basophils % 1.1 Absolute Neutrophils 2.0 Absolute Lymphocytes 1.4 Absolute Monocytes 0.5 Absolute Eosinophils 0.2 Absolute Basophils 0.0 Sodium 139.0 Potassium 4.4 Chloride 106 Carbon Dioxide 23 Anion Gap 10 BUN 16 Creatinine 0.94 Est GFR ( Amer) > 60 Est GFR (Non-Af Amer) > 60 Glucose 93 Calcium 9.8 Total Bilirubin 0.5 Direct Bilirubin 0.3 Neonat Total Bilirubin Not Reportable Neonat Direct Bilirubin Not Reportable Neonat Indirect Bili Not Reportable AST 21 ALT 27 Alkaline Phosphatase 44 Troponin I Total Protein 6.9 Albumin 4.4 Urine Color YELLOW Urine Appearance CLEAR Urine pH 5.0 Ur Specific [place] 1.013 Urine Protein 30 H Urine Glucose (UA) NEGATIVE Urine Ketones NEGATIVE Urine Blood MODERATE H Urine Nitrite NEGATIVE Urine Bilirubin NEGATIVE Urine Urobilinogen NEGATIVE Ur Leukocyte Esterase NEGATIVE Urine WBC (Auto) 0 Urine RBC (Auto) 4 Urine Mucus (Auto) RARE Urine Ascorbic Acid NEGATIVE 10/12/18 10:40 WBC RBC Hgb Hct MCV MCH MCHC RDW Plt Count Seg Neutrophils % Lymphocytes % Monocytes % Eosinophils % Basophils % Absolute Neutrophils Absolute Lymphocytes Absolute Monocytes Absolute Eosinophils Absolute Basophils Sodium Potassium Chloride Carbon Dioxide Anion Gap BUN Creatinine Est GFR ( Amer) Est GFR (Non-Af Amer) Glucose Calcium Total Bilirubin Direct Bilirubin Neonat Total Bilirubin Neonat Direct Bilirubin Neonat Indirect Bili AST ALT Alkaline Phosphatase Troponin I < 0.012 Total Protein Albumin Urine Color Urine Appearance Urine pH Ur Specific [place] Urine Protein Urine Glucose (UA) Urine Ketones Urine Blood Urine Nitrite Urine Bilirubin Urine Urobilinogen Ur Leukocyte Esterase Urine WBC (Auto) Urine RBC (Auto) Urine Mucus (Auto) Urine Ascorbic Acid Chest X-Ray 10/12/18 10:32 IMPRESSION: NO ACUTE RADIOGRAPHIC FINDING IN THE CHEST. Temp Pulse Resp BP Pulse Ox 97.9 F 65 17 194/123 H 99 10/12/18 13:28 10/12/18 13:27 10/12/18 13:28 10/12/18 13:28 10/12/18 13:10/12/18 16:41 43-year-old male with hypertension, cluster headaches presents with concern for elevated blood pressure. Patient states that he was being evaluated for an increase in his disability when his documented blood pressure was high and they recommended he be seen in the emergency department. Patient does take multiple medications for his blood pressure and reports persistent hypertension that is poorly controlled. Patient has been compliant with his medications that include atorvastatin, atenolol, clonidine. Patient currently complaining of a headache consistent with his cluster headaches. CBC, CMP, troponin, chest x- ray, are within normal limits. No evidence of endorgan damage. Blood does show hematuria which the patient was advised about and told that he will need follow-up evaluation for this. Patient had resolution of his headache with oxygen, sumatriptan. Patient did get his home dose of clonidine 0.1 mg. Repeat blood pressure prior to discharge is 190 123. Patient was provided copies of his lab work and imaging that were performed today and advised to follow-up with his primary care physician. Patient was evaluated and treated as appropriate for the patient's presenting symptoms and complaint, with consideration of any critical or life threatening conditions that may be associated with their obtained history and exam as noted above. All results were discussed with patient. Patient provided the opportunity to ask questions, and express concerns. Patient was educated on treatments based on their presumed diagnosis as noted above. At this time we will discharge the patient with return precautions and follow-up recommendations. Verbal discharge instructions given a the bedside. Medication warnings reviewed. Patient is in agreement with this plan and has verbalized understanding of return precautions. After careful consideration I feel that that patient can be safely discharged from the emergency department, they were advised to followup with a primary care physician in 2-3 days. Dictation on this chart was performed using voice recognition software and may result in unintended grammatical, spelling, syntax or errors. - Vital Signs Vital signs: Temp Pulse Resp BP Pulse Ox 97.9 F 65 17 194/123 H 99 10/12/18 13:28 10/12/18 13:27 10/12/18 13:28 10/12/18 13:28 10/12/18 13:28 - Laboratory Result Diagrams: 10/12/18 10:40 10/12/18 10:40 Laboratory results interpreted by me: 10/12/18 10/12/18 09:18 10:40 RBC 6.05 H RDW 14.3 H Urine Protein 30 H Urine Blood MODERATE H - Diagnostic Test Radiology reviewed: Image reviewed, Reports reviewed Discharge - Discharge Clinical Impression: Hypertension Qualifiers: Hypertension type: unspecified Qualified Code(s): I10 - Essential (primary) hypertension Cluster headache Qualifiers: Headache chronicity pattern: chronic headache Intractability: not intractable Qualified Code(s): G44.029 - Chronic cluster headache, not intractable Hematuria Qualifiers: Hematuria type: unspecified type Qualified Code(s): R31.9 - Hematuria, unspecified Condition: Good Disposition: HOME, SELF-CARE Instructions: Headache ([facility]), Hematuria ([facility]), High Blood Pressure ([facility]) Additional Instructions: Your labs did not show any evidence of endorgan damage. Your urine did show evidence of blood. This will need follow-up and repeat urinalysis. Follow up with your [id number] hours for further care or return to the ED IMME DIATELY if symptoms worsen or you have any concerns. If you cannot afford to follow up with your primary care physician a list of low cost clinics have been provided at the end of your discharge papers as well. Most prescribed medications have multiple side effects. The safest thing to do is when filling your prescription speak to your pharmacist regarding possible interactions with your normal home medications and over the counter medications such as Ibuprofen, Tylenol, Benadryl. If you experience any symptoms that cause you discomfort or concern you should discontinue the medication immediately and return to the emergency room or call your primary care physician. Please bring the copies of your lab work and imaging that were performed today to your primary care physician. Forms: Elevated Blood Pressure [facility]errals: [facility] [[facility]] - Follow up as needed
[2018-10-12] MEDS ORDERED: CLONIDINE HCL 0.1 MG TABLET PO ONE (13:12)
[2018-10-12 13:31] VITALS: BP 194/123
== END 2018-10-12 13:31 | disposition home or self-care (01) ==
LOC: ER 08:44
DX: I10 Essential (primary) hypertension (principal); G44.209 Tension-type headache, unspecified, not intractable; R31.9 Hematuria, unspecified; F17.210 Nicotine dependence, cigarettes, uncomplicated; E78.00 Pure hypercholesterolemia, unspecified
CPT/HCPCS: 99283; 36415; 85025; 80053; 81001; 84484; 71046; J3490

== ENCOUNTER → 2018-11-08 | Outpatient (CLI) | payer OTHER ==
--- NOTE | 2018-11-08 11:28 | RADIOLOGY REPORT (SQ) ---
EXAM DESCRIPTION: CHEST PA/LATERAL COMPLETED DATE/TIME: 11/08/2018 10:52 am REASON FOR STUDY: COPD COMPARISON: 10/12/2018 EXAM PARAMETERS: NUMBER OF VIEWS: two views TECHNIQUE: Digital Frontal and Lateral radiographic views of the chest acquired. RADIATION DOSE: NA LIMITATIONS: none FINDINGS: LUNGS AND PLEURA: No opacities, masses or pneumothorax. No pleural effusion. MEDIASTINUM AND HILAR STRUCTURES: No masses or contour abnormalities. HEART AND VASCULAR STRUCTURES: Heart normal size. No evidence for failure. BONES: No acute findings. HARDWARE: None in the chest. OTHER: No other significant finding. IMPRESSION: NO SIGNIFICANT RADIOGRAPHIC FINDING IN THE CHEST. TECHNICAL DOCUMENTATION: JOB ID: [id number] [employer]- All Rights Reserved Reading location - IP/workstation name: [email or web address]
[2018-11-08 11:35] LABS: ABSOLUTE EOSINOPHILS # (AUTO) 0.3 10^3/uL (0.0-0.6); ABSOLUTE LYMPHOCYTES (AUTO) 2.4 10^3/uL (0.5-4.7); ABSOLUTE MONOCYTES (AUTO) 0.6 10^3/uL (0.1-1.4); BASOPHILS % (AUTO) 0.8 % (0-2); EOSINOPHILS % (AUTO) 5.1 % (0-6); HEMATOCRIT 47.5 % (37.9-51.0); HEMOGLOBIN 15.9 g/dL (13.5-17.0); LYMPHOCYTES % (AUTO) 46.1 % (13-45); MEAN CORPUSCULAR HEMOGLOBIN 27.4 pg (27.0-33.4); MEAN CORPUSCULAR HGB CONC 33.4 g/dL (32.0-36.0); MEAN CORPUSCULAR VOLUME 82 fl (80-97); MONOCYTES % (AUTO) 11.1 % (3-13); PLATELET COUNT 169 10^3/uL (150-450); RED BLOOD COUNT 5.79 10^6/uL (4.35-5.55); RED CELL DISTRIBUTION WIDTH 14.3 % (11.5-14.0); SEGMENTED NEUTROPHILS % (AUTO) 36.9 % (42-78); TOTAL CELLS COUNTED % (AUTO) 100 %; WHITE BLOOD COUNT 5.3 10^3/uL (4.0-10.5)
[2018-11-08 12:05] LABS: ALANINE AMINOTRANSFERASE 18 U/L (21-72); ALBUMIN 4.2 g/dL (3.5-5.0); ALKALINE PHOSPHATASE 47 U/L (38-126); ANION GAP 10 (5-19); ASPARTATE AMINO TRANSFERASE 14 U/L (17-59); BILIRUBIN,DIRECT 0.2 mg/dL (0.0-0.4); BILIRUBIN,TOTAL 0.3 mg/dL (0.2-1.3); BLOOD UREA NITROGEN 17 mg/dL (7-20); CALCIUM 9.4 mg/dL (8.4-10.2); CARBON DIOXIDE 22 mmol/L (22-30); CHLORIDE 108 mmol/L (98-107); GLUCOSE 95 mg/dL (75-110); POTASSIUM 3.6 mmol/L (3.6-5.0); SODIUM 140.4 mmol/L (137-145); TOTAL PROTEIN 6.3 g/dL (6.3-8.2)
--- NOTE | 2018-11-09 00:12 | EKG REPORT ---
SEVERITY:- ABNORMAL ECG - SINUS RHYTHM LEFT VENTRICULAR HYPERTROPHY : Confirmed by: Caty Ramos 09-Nov-2018 00:12:01
== END ==
LOC: OD 10:24
PROVIDERS: ATTEND Orthopaedic Surgery
DX: J44.9 Chronic obstructive pulmonary disease, unspecified (principal)
CPT/HCPCS: 36415; 71046; 80053; 85025; 93005; 93010

== ENCOUNTER 2019-05-17 18:42 | Emergency (ER) | payer OTHER ==
[2019-05-17] MEDS ORDERED: SUMATRIPTAN SUCCINATE INJ/PF 6 MG/0.5 ML SDV SUBCUT ONE (19:14)
--- NOTE | 2019-05-17 19:14 | ER Document Report ---
ED Medical Screen (RME) - General Chief Complaint: Headache Stated Complaint: HEADACHE,DIFFICULTY BREATHING Time Seen by Provider: 05/17/19 19:08 Primary Care Provider: TAI VENTURA MD [Primary Care Provider] - Follow up as needed Mode of Arrival: Ambulatory Information source: Patient Notes: 43-year-old male presented to ED for complaint of headache with elevated blood pressure. He is on blood pressure medications. He does have cluster migraine headaches. He states he has a lump to the right shoulder/neck that is been there since [facility]. He now has a lump on the other side of his neck in the same area about a week ago. He states his headache started about a hour ago and he has medication that he takes for his cluster migraines that he got from his neurologist but he did not get home in time to take the medication as it is supposed to be given. He states he did not go to his house yet he came here because this was closer than his house. He is also very concerned about the 2 lumps on his neck. He takes Imitrex 6 mg for his cluster headache I have ordered that to be given but he also wants to be evaluated for his lumps on his neck. I have greeted and performed a rapid initial assessment of this patient. A comprehensive ED assessment and evaluation of the patient, analysis of test results and completion of medical decision making process will be conducted by an additional ED providers. TRAVEL OUTSIDE OF THE [place] IN LAST 30 DAYS: No - Related Data Allergies/Adverse Reactions: iodine [Iodine] Allergy (Severe, Verified 05/17/19 19:08) scopolamine [Scopolamine] Allergy (Intermediate, Verified 05/17/19 19:08) Past Medical History - Past Medical History Cardiac Medical History: Reports: Hx Hypercholesterolemia, Hx Hypertension Neurological Medical History: Reports: Hx Migraine Renal/ Medical History: Denies: Hx Peritoneal Dialysis Psychiatric Medical History: Reports: Hx Depression Past Surgical History: Reports: Hx Adenoidectomy, Hx Appendectomy, Hx Orthopedic Surgery - Immunizations Immunizations up to date: Yes Hx Diphtheria, Pertussis, Tetanus Vaccination: Yes Physical Exam - Vital signs Vitals: Temp Pulse Resp BP Pulse Ox 97.7 F 63 16 176/117 H 98 05/17/19 18:58 05/17/19 18:58 05/17/19 18:58 05/17/19 18:58 05/17/19 18:58 Course - Vital Signs Vital signs: Temp Pulse Resp BP Pulse Ox 97.7 F 63 16 175/113 H 98 05/17/19 18:58 05/17/19 18:58 05/17/19 18:58 05/17/19 19:01 05/17/19 18:58 Doctor's Discharge - Discharge Referrals: TAI VENTURA MD [Primary Care Provider] - Follow up as needed
[2019-05-17 19:48] LABS: ABSOLUTE EOSINOPHILS # (AUTO) 0.1 10^3/uL (0.0-0.6); ABSOLUTE LYMPHOCYTES (AUTO) 1.4 10^3/uL (0.5-4.7); ABSOLUTE MONOCYTES (AUTO) 0.5 10^3/uL (0.1-1.4); ABSOLUTE NEUT (AUTO) 3.3 10^3/uL (1.7-8.2); BASOPHILS % (AUTO) 0.9 % (0-2); EOSINOPHILS % (AUTO) 1.9 % (0-6); HEMOGLOBIN 18.3 g/dL (13.5-17.0); LYMPHOCYTES % (AUTO) 26.6 % (13-45); MEAN CORPUSCULAR HEMOGLOBIN 27.6 pg (27.0-33.4); MEAN CORPUSCULAR HGB CONC 33.8 g/dL (32.0-36.0); MEAN CORPUSCULAR VOLUME 82 fl (80-97); MONOCYTES % (AUTO) 9.7 % (3-13); PLATELET COUNT 201 10^3/uL (150-450); RED BLOOD COUNT 6.62 10^6/uL (4.35-5.55); RED CELL DISTRIBUTION WIDTH 14.5 % (11.5-14.0); SEGMENTED NEUTROPHILS % (AUTO) 60.9 % (42-78); TOTAL CELLS COUNTED % (AUTO) 100 %; WHITE BLOOD COUNT 5.3 10^3/uL (4.0-10.5)
[2019-05-17 20:08] LABS: ALBUMIN 5.1 g/dL (3.5-5.0); ALKALINE PHOSPHATASE 61 U/L (38-126); ANION GAP 10 (5-19); ASPARTATE AMINO TRANSFERASE 30 U/L (17-59); BILIRUBIN,DIRECT 0.2 mg/dL (0.0-0.4); BILIRUBIN,TOTAL 0.5 mg/dL (0.2-1.3); BLOOD UREA NITROGEN 16 mg/dL (7-20); CALCIUM 10.3 mg/dL (8.4-10.2); CARBON DIOXIDE 23 mmol/L (22-30); CHLORIDE 102 mmol/L (98-107); GLUCOSE 116 mg/dL (75-110); POTASSIUM 3.9 mmol/L (3.6-5.0); TOTAL PROTEIN 8.4 g/dL (6.3-8.2)
--- NOTE | 2019-05-17 21:48 | RADIOLOGY REPORT (SQ) ---
EXAM DESCRIPTION: US HEAD NECK SOFT TISSUE COMPLETED DATE/TME: 05/17/2019 19:17 CLINICAL HISTORY: 43 years, Male, 2 lumps on his neck COMPARISON: None. TECHNIQUE: 18 LIMITATIONS: None. FINDINGS: Imaging over the right supraclavicular region demonstrates a 1.4 x 1.1 x 1.2 cm echogenic nodular focus which could reflect mildly enlarged lymph node. Imaging over the left supra clavicular region demonstrates a 1.0 x 1.0 x 0.4 cm nonenlarged simple appearing lymph node. No other evidence for mass. No abnormal fluid collection. IMPRESSION: Nonspecific nonenlarged to mildly enlarged lymph nodes in the left and right supraclavicular regions, as above. Clinical follow-up recommended copyright 2010 [employer]- All Rights Reserved
--- NOTE | 2019-05-17 21:48 | ER Document Report ---
ED General - General Chief Complaint: Headache Stated Complaint: HEADACHE,DIFFICULTY BREATHING Time Seen by Provider: 05/17/19 19:08 Primary Care Provider: TAI VENTURA MD [Primary Care Provider] - Follow up as needed Mode of Arrival: Ambulatory Notes: Patient is a 43-year-old male that comes emergency department with 2 complaints. First complaint was a cluster headache that developed earlier when driving home from work, he states that he had a severe throbbing headache, tears mainly on the left side with some nasal drainage. He is diagnosed with cluster headaches and usually takes Imitrex 6 mg IM and or uses oxygen at home. However he states he was given Imitrex in triage and now his headache is completely gone. He denies current headache or complaints in regards to this. He states he did vomit earlier but he does not have any nausea or vomiting now, denies chest pain, abdominal pain, fever/chills. Patient second complaint is an ongoing swollen area on the base of his neck in the front approaching the shoulder. He states this area at times will become very swollen and somewhat tender. He states he is also getting it on the other side intermittently. He states he was hoping to get it evaluated and he did get an ultrasound of this already before I evaluate the patient. He does report that he has had multiple recent surgeries on his shoulder (right) and older surgeries on the left shoulder. He denies sore throat, denies at the areas are tender now. He smokes. He denies any recreational drugs. TRAVEL OUTSIDE OF THE [place] IN LAST 30 DAYS: No - Related Data Allergies/Adverse Reactions: iodine [Iodine] Allergy (Severe, Verified 05/17/19 19:08) scopolamine [Scopolamine] Allergy (Intermediate, Verified 05/17/19 19:08) Past Medical History - General Information source: Patient - Social History Smoking Status: Current Some Day Smoker Smoking Education Provided: Yes - <3 min Frequency of alcohol use: None Drug Abuse: None Lives with: Family Family History: Reviewed & Not Pertinent Patient has suicidal ideation: No Patient has homicidal ideation: No - Past Medical History Cardiac Medical History: Reports: Hx Hypercholesterolemia, Hx Hypertension Neurological Medical History: Reports: Hx Migraine Renal/ Medical History: Denies: Hx Peritoneal Dialysis Psychiatric Medical History: Reports: Hx Depression Past Surgical History: Reports: Hx Adenoidectomy, Hx Appendectomy, Hx Orthopedic Surgery - Immunizations Immunizations up to date: Yes Hx Diphtheria, Pertussis, Tetanus Vaccination: Yes Review of Systems - Review of Systems Constitutional: No symptoms reported EENT: No symptoms reported Cardiovascular: No symptoms reported Respiratory: No symptoms reported Gastrointestinal: See HPI Genitourinary: No symptoms reported Male Genitourinary: No symptoms reported Musculoskeletal: No symptoms reported Skin: See HPI Hematologic/Lymphatic: See HPI Neurological/Psychological: See HPI Physical Exam - Vital signs Vitals: Temp Pulse Resp BP Pulse Ox 97.7 F 63 16 176/117 H 98 05/17/19 18:58 05/17/19 18:58 05/17/19 18:58 05/17/19 18:58 05/17/19 18:58 - Notes Notes: GENERAL: Alert, interacts well. No acute distress. HEAD: Normocephalic, atraumatic. EYES: Pupils equal, round, and reactive to light. Extraocular movements intact. ENT: Oral mucosa moist, tongue midline. Oropharynx unremarkable. Airway patent. Nares patent, no nasal septal hematoma, TM's intact. NECK: Full range of motion. Supple. Trachea midline. At the base of the neck over the supraclavicular area bilaterally there are spongy somewhat swollen areas suggestive of enlarged lymph nodes, this is much more noticeable on the right. There is no induration, tenderness, fluctuance, erythema. LUNGS: Clear to auscultation bilaterally, no wheezes, rales, or rhonchi. No respiratory distress. HEART: Regular rate and rhythm. No murmur ABDOMEN: Soft, non-tender. Non-distended. Bowel sounds present in all 4 quadrants. GENITOURINARY: Deferred EXTREMITIES: Moves all 4 extremities spontaneously. No edema, normal radial and dorsalis pedis pulses bilaterally. No cyanosis. BACK: no cervical, thoracic, lumbar midline tenderness. No saddle anesthesia, normal distal neurovascular exam. Moves all extremities in full range of motion. NEUROLOGICAL: Alert and oriented x3. Normal speech. Cranial nerves II through XII grossly intact. PSYCH: Normal affect, normal mood. SKIN: Warm, dry, normal turgor. No rashes or lesions noted. Course - Re-evaluation Re-evalutation: Patient alert and well-appearing. He states his headache is completely resolved. His neurological exam is normal. His blood pressure significantly improved after treatment. I did review his work-up including CBC, chemistry these are unremarkable. I did review ultrasound of the targeted areas in the neck and these do indicate lymphadenopathy. Because of the location (supraclavicular) I discussed with Dr. Goodman, patient does not have any weight loss, night sweats, or associated symptoms otherwise, he is asymptomatic at this time. Recommendation is primary care follow-up for potential imaging but he does not recommend imaging or further work-up at this time. I discussed this with patient at length, patient and significant other state appreciation and agreement. Stable time of discharge. - Vital Signs Vital signs: Temp Pulse Resp BP Pulse Ox 98.3 F 59 L 18 157/88 H 98 05/17/19 22:14 05/17/19 22:14 05/17/19 22:14 05/17/19 21:52 05/17/19 22:14 - Laboratory Result Diagrams: 05/17/19 19:35 05/17/19 19:35 Laboratory results interpreted by me: 05/17/19 05/17/19 19:35 19:35 RBC 6.62 H Hgb 18.3 H Hct 54.0 H RDW 14.5 H Sodium 135.4 L Glucose 116 H Calcium 10.3 H Total Protein 8.4 H Albumin 5.1 H Discharge - Discharge Clinical Impression: Supraclavicular lymphadenopathy Headache Qualifiers: Headache type: cluster Headache chronicity pattern: unspecified pattern Intractability: not intractable Qualified Code(s): G44.009 - Cluster headache syndrome, unspecified, not intractable Condition: Stable Disposition: HOME, SELF-CARE Additional Instructions: Follow-up with primary care for additional management of cluster headaches. Your evaluation and imaging indicates supraclavicular lymph node swelling on both sides. Because of the location the recommendation is primary care follow- up and additional imaging including CT of the soft tissues of the neck and CT of the chest to evaluate this. This could be benign but it is very important that you follow-up so a concerning underlying problem is not missed. Stop smoking. Your hemoglobin is high, hydrate, consider donating blood to lower your risk factors that we discussed (donate blood, not plasma). Return for any concerning symptoms including returned or severe headache, vomiting, fevers, or any other concerning or worsening symptoms. Forms: Elevated Blood Pressure Referrals: TAI VENTURA MD [Primary Care Provider] - Follow up as needed
[2019-05-17 21:53] VITALS: BP 157/88
== END 2019-05-17 22:24 | disposition home or self-care (01) ==
LOC: ER 18:42
DX: G44.009 Cluster headache syndrome, unspecified, not intractable (principal); R59.0 Localized enlarged lymph nodes; R09.89 Other specified symptoms and signs involving the circulatory and respiratory systems; F17.200 Nicotine dependence, unspecified, uncomplicated; I10 Essential (primary) hypertension; Z98.890 Other specified postprocedural states; Z88.8 Allergy status to other drugs, medicaments and biological substances
CPT/HCPCS: 99284; 96372; 36415; 85025; 80053; 76536; J3030

== ENCOUNTER → 2020-05-28 | Outpatient (CLI) | payer MEDICAID, OTHER ==
--- NOTE | 2020-05-29 10:01 | RADIOLOGY REPORT (SQ) ---
EXAM DESCRIPTION: MRI ORBIT/FACIAL/NECK COMBO IMAGES COMPLETED DATE/TIME: 05/28/2020 5:13 pm REASON FOR STUDY: (R59.0)LOCALIZED ENLARGED LYMPH NODES R59.0 LOCALIZED ENLARGED LYMPH NODES COMPARISON: None. TECHNIQUE: Multiplanar multisequence imaging of the soft tissues of the neck performed without and w ith contrast. All images stored on PACS. CONTRAST TYPE AND DOSE: 20 mL Prohance. RENAL FUNCTION: Not indicated. ACR Type II contrast agent associated with few, if any, unconfounded cases of NSF LIMITATIONS: None. FINDINGS: SKULL BASE: Intact. MAJOR SALIVARY GLANDS: No solid or cystic masses. No inflammatory changes. LYMPHADENOPATHY: Scattered small physiologic lymph nodes. Largest is left level 5 measuring 9 x 14 m m. This corresponds to the palpable marker. No bulky adenopathy. MUCOSAL MASSES OR ASYMMETRY: No mucosal masses or asymmetry. LARYNX/CORDS: No abnormal findings. VASCULAR STRUCTURES: The major vessels are patent. LUNG APICES: Clear. BONES: Intact. THYROID: Normal size. No masses. PARANASAL SINUSES: Clear. OTHER: No other significant finding. IMPRESSION: Small left level 5 lymph node. No bulky adenopathy. TECHNICAL DOCUMENTATION: JOB ID: [id number] 2010 [email or web address]- All Rights Reserved Reading location - IP/workstation name: [email or web address]
== END ==
LOC: RAD 15:37
PROVIDERS: ATTEND Otolaryngology
DX: R59.0 Localized enlarged lymph nodes (principal)
CPT/HCPCS: 82565; 70543; A9576

== ENCOUNTER → 2020-06-04 | Day surgery (SDC) | payer OTHER ==
--- NOTE | 2020-06-04 16:42 | RADIOLOGY REPORT (SQ) ---
EXAM DESCRIPTION: U/S BX SOFT TISS NECK THORX IMAGES COMPLETED DATE/TIME: 06/04/2020 12:40 pm REASON FOR STUDY: (R59.0)LOCALIZED ENLARGED LYMPH NODES COMPARISON: None. TECHNIQUE: The procedure, risks, benefits, and alternatives were discussed with the patient in the p reprocedural area, and all questions were answered. Informed consent was obtained verbally and in wri ting. The patient was then brought to the procedural suite, positioned supine on a gurney, and a time-out w as performed. Selected grayscale and color Doppler images of the neck were then obtained; there is n o sonographic abnormality at the site of tenderness in the right supraclavicular fossa. The left-aissatou ed level V lymph node described on the correlative MRI from 05/28/2020 was identified and on ultrasoun d it had a normal appearance with a preserved architecture and no cortical thickening. There were se veral other cervical lymph nodes identified none of which were enlarged based on size criteria or had a distorted architecture. The above was discussed with the referring physician and it was decided t o proceed with an ultrasound-guided biopsy of the largest of the cervical lymph nodes identified. [facility] ed on review of these images an appropriate percutaneous access site was selected. The area around th e selected access site was subsequently prepped and draped with 2% chlorhexidine utilizing standard s terile technique. Then, after the access site was anesthetized with 1% lidocaine, a 25 gauge needle w as advanced into a right-sided level II lymph node utilizing sonographic guidance ; after each pass t he sample was submitted to cytopathology for review and in total 4 passes were performed. The patient tolerated the procedure well with local anesthesia. At the end of the procedure the patient's condition was unchanged from the preprocedural baseline. Documentation of [id number] time the proceduralist spent monitoring the patient: 25 minutes. LIMITATIONS: None. FINDINGS: Integrated into the Technique. IMPRESSION: Successful ultrasound-guided fine-needle aspiration of a right-sided level II lymph node . TECHNICAL DOCUMENTATION: JOB ID: [id number] 2010 [employer]- All Rights Reserved Reading location - IP/workstation name: [email or web address]
== END ==
LOC: RAD 09:37
PROVIDERS: ATTEND Otolaryngology
DX: R59.0 Localized enlarged lymph nodes (principal)
CPT/HCPCS: 21550; 88173